=== PATIENT | female | born 1995 | race African-American/Black ===

== ENCOUNTER 2016-05-11 18:40 | Emergency (ER) | payer OTHER ==
[~2016-05-11 18:40] MED LIST: NO HOME MEDICATION
[2016-05-11 19:45] LABS: PREGNANCY-SERUM NEGATIVE (NEGATIVE)
[2016-05-11 19:46] LABS: ANION GAP 12 mmol/L (0-20); BLOOD UREA NITROGEN 11 mg/dl (6-24); CALCIUM 9.4 mg/dl (8.5-10.5); CARBON DIOXIDE-VENOUS 25 mmol/L (22-32); CHLORIDE 108 mmol/l (96-110); CREATININE 0.78 mg/dl (0.50-1.10); GLUCOSE 85 mg/dL (70-110); SODIUM 141 mmol/L (135-145); eGFR VALUE FOR BLACK >90 mL/Min
[2016-05-11 19:47] LABS: POTASSIUM 3.9 mmol/L (3.7-5.1)
== END 2016-05-11 20:55 ==
LOC: EDMED 18:40
PROVIDERS: Physician Assistant
DX: E86.0 Dehydration (principal); Z72.0 Tobacco use
CPT/HCPCS: J2405; J7030

== ENCOUNTER 2016-11-12 07:47 | Emergency (ER) | payer SELFPAY ==
[~2016-11-12] VITALS: Ht 165.1 cm; Wt 69.4 kg
[2016-11-12 08:41] LABS: URINE APPEARANCE CLEAR; URINE BILIRUBIN NEGATIVE (NEG); URINE BLOOD MODERATE (NEG); URINE COLOR PALE YELLOW; URINE GLUCOSE (UA) NEGATIVE (NEG); URINE KETONE NEGATIVE (NEG); URINE LEUKOCYTE ESTERASE POSITIVE (NEG); URINE NITRITE NEGATIVE (NEG); URINE PROTEIN NEGATIVE (NEG)
[2016-11-12 08:47] LABS: URINE BACTERIA 2+; URINE MUCUS 3+
[2016-11-12] MEDS ORDERED: VIBRAMYCIN100 M1 PO (09:58)
[2016-11-12] MEDS ORDERED: FLAGYL500 M1 PO (09:58)
== END 2016-11-12 11:20 ==
LOC: EDMED 07:47
PROVIDERS: Emergency Medicine
DX: N39.0 Urinary tract infection, site not specified (principal); N89.8 Other specified noninflammatory disorders of vagina; Z88.0 Allergy status to penicillin
CPT/HCPCS: J0696